=== PATIENT | female | born 1965 | race Caucasian/White ===

== ENCOUNTER 2024-09-03 11:00 | Outpatient (RCR) | payer MEDICAID, SELFPAY ==
--- NOTE | 2024-08-19 16:08 | PT.OIERPT ---
PT OP Initial Eval Patient Information Outpatient Physical Therapy Treatment Date: 08/19/24 Visit Reasons: Pain in left shoulder Medical Diagnosis: Left Shoulder Pain Treatment Dx #1: Left Shoulder Pain Treatment Dx #2: Left Shoulder Mobility Deficits Start of Care: 08/19/24 Date of Onset: 6 months ago Smoking Status Smoking Status: Never smoker Initial Assessment Subjective: Pt is a 59 y/o female reports of chronic left shoulder pain (10/14) worsening ~ 6 months ago. Pt mentioned her neck is fused from C5-C7 several years ago. Pt has limitation with lifting, griping, chores, self care, cooking, cleaning, and performing recreational activities. Objective: Left Shoulder PROM: all motions are WFL with pain Left Shoulder AROM Flexion: 150 deg Abduction: 145 deg External Rotation: 70 deg Internal Rotation: 50 deg Left Shoulder MMTs: grossly 3-/5 Left Scapula MMTs: grossly 3-/5 Assessment: Pt demonstrate left shoulder mobility and strength deficits leading to difficulty with ADLs. Pt will attempt physical therapy if pain persist Pt will be refer back to provider for further consultation. Short Term and Quality Assurance Representative Goals 1) Increase left shoulder AROM WNL in 6 wks to be able to perform overhead motions 2) Decrease shoulder pain to 2/10 in 6 wks to be able to perform chores 3) Increase left shoulder MMTs grossly to 4/5 in 6 wks to be able to perform recreational activities 4) Increase left scapula MMTs grossly to 4-/5 in 6 wks to be able to perform lifting activities 5) Indep with HEP Treatment Plan 1) Manual Therapy 2) Therapeutic Activities 3) Therapeutic Exercises 4) Modalities (ice, heat) Frequency and Duration: 2 x wk for 6 wks Certification Dates: 08/19/24 to 11/18/24 Procedure Charges OP PT Eval Mod Complex 30 minutes: Yes
--- NOTE | 2024-08-27 14:38 | PT.ODAYNRPT ---
PT Outpatient Daily Note OP Daily Note Outpatient Physical Therapy Treatment Date: 08/27/24 Visit Reasons: Pain in left shoulder Subjective: Pt's shoulder hurt more after the evaluation. Pt forgot to mention during the eval that 2 days prior she feel and hurt the left arm. Pt has a bruise on her arm with a bump. Objective: Please see flow chart for list of ther ex performed Assessment: pain with all shoulder exercises, however, able to manage instructed reps. Cue to pace with exercises to help with fatigue Plan: Continue with PT Length of Time (minutes) of Treatment: 30 Minutes Procedure Charges Therapeutic Exercise 30 minutes: Yes
--- NOTE | 2024-09-03 13:02 | PT.ODAYNRPT ---
PT Outpatient Daily Note OP Daily Note Outpatient Physical Therapy Treatment Date: 09/03/24 Visit Reasons: Pain in left shoulder Subjective: Pt c/o shoulder pain. Objective: Please see flow sheet for ther ex list. Assessment: Added scapular retraction exercise, pt completed post verbal cues and demonstrations. Plan: Continue with POC. Length of Time (minutes) of Treatment: 30 Minutes Procedure Charges Therapeutic Exercise 30 minutes: Yes
== END 2024-09-03 23:59 | disposition home or self-care (01) ==
LOC: CPTX 11:00
PROVIDERS: PCP Nurse Practitioner Family; Referring Provider Nurse Practitioner Family; Visit Provider Nurse Practitioner Family
DX: M25.512 Pain in left shoulder (principal); G89.29 Other chronic pain; Z98.1 Arthrodesis status
CPT/HCPCS: 97110; 97162

== ENCOUNTER 2024-10-01 14:30 | Outpatient (RCR) | payer MEDICAID, SELFPAY ==
--- NOTE | 2024-09-08 14:36 | PT.ODAYNRPT ---
PT Outpatient Daily Note OP Daily Note Outpatient Physical Therapy Treatment Date: 09/08/24 Visit Reasons: left shoulder pain Subjective: Pt continues to report shoulder pain especially with activity. Objective: Please see flow sheet for ther ex list. Assessment: Pt demonstrates poor activity tolerance due to pain response. Plan: Continue with POC. Length of Time (minutes) of Treatment: 30 Minutes Procedure Charges Therapeutic Exercise 30 minutes: Yes
--- NOTE | 2024-09-23 16:15 | PT.ODAYNRPT ---
PT Outpatient Daily Note OP Daily Note Outpatient Physical Therapy Treatment Date: 09/23/24 Visit Reasons: left shoulder pain Subjective: Pt reports L shoulder is doing ok. Objective: Please see flow sheet for ther ex list. Assessment: Interventions completed with rest breaks in between due to pain and muscle fatigue. Plan: Continue with POC. Length of Time (minutes) of Treatment: 30 Minutes Procedure Charges Therapeutic Exercise 30 minutes: Yes
--- NOTE | 2024-10-01 15:22 | PT.ODAYNRPT ---
PT Outpatient Daily Note OP Daily Note Outpatient Physical Therapy Treatment Date: 10/01/24 Visit Reasons: left shoulder pain Subjective: Pt c/o having pain in her mid back today, she has experienced before she thinks it might be related to her breathing. As per pt she has a follow up with her doctor soon. Objective: Please see flow sheet for ther ex list. Assessment: Pt performing interventions with decrease speed and more rest breaks due to shoulder pain and c/o secondary pain in t/s. Plan: Continue with pOC> Length of Time (minutes) of Treatment: 30 Minutes Procedure Charges Therapeutic Exercise 30 minutes: Yes
== END 2024-10-04 23:59 | disposition home or self-care (01) ==
LOC: CPTX 14:30
PROVIDERS: PCP Nurse Practitioner Family; Referring Provider Nurse Practitioner Family; Visit Provider Nurse Practitioner Family
DX: M25.512 Pain in left shoulder (principal); G89.29 Other chronic pain; Z98.1 Arthrodesis status
CPT/HCPCS: 97110

== ENCOUNTER 2024-10-10 14:13 | Outpatient (RCR) | payer MEDICAID, SELFPAY ==
--- NOTE | 2024-10-10 14:58 | PT.ODS1RPT ---
PT OP Progress/Discharge Note Date of Service: 10/10/24 Progress Note/DC Note Progress Note/Discharge Note: DC Note Patient Information Visit Reasons: left shoulder pain Medical Diagnosis: Left Shoulder Pain Treatment Dx #1: Left Shoulder Mobility Deficits Service Discharge Date: 10/10/24 Status Subjective: Pt's shoulder feels about the same and continues to have pain with rotational arm movement. Pt has limitation with overhead motions, lifting, chores, self care, and performing recreational activities. Objective: Left Shoulder PROM: all motions are WFL with pain in all end ranges Left Shoulder AROM Flexion: 150 deg Abduction: 140 deg External Rotation: 70 deg Internal Rotation: 50 deg Left Shoulder MMTs: grossly 3-/5 Left Scapula MMTs: grossly 3-/5 Assessment: Pt demonstrate left shoulder pain with continued shoulder mobility deficits leading to difficulty with ADLs. Pt will no longer benefit from physical therapy due to minimal progress towards physical therapy good. Pt instructed on HEP last session and educated to continue exercises to maintain overall mobility. Pt performed all exercises safely, thank you for your referrals. Plan: D/C home with HEP and follow up with provider Further imaging per provider's discretion Procedure Charges Therapeutic Exercise 30 minutes: Yes
== END 2024-11-03 23:59 | disposition home or self-care (01) ==
LOC: CPTX 14:13
PROVIDERS: PCP Nurse Practitioner Family; Referring Provider Nurse Practitioner Family; Visit Provider Nurse Practitioner Family
DX: M25.512 Pain in left shoulder (principal); G89.29 Other chronic pain
CPT/HCPCS: 97110